=== PATIENT | male | born 1940 | race Caucasian/White ===

== ENCOUNTER 2021-09-05 08:05 | Outpatient (CLI) | payer OTHER | END 2021-09-05 08:15 | disposition home or self-care (01) | LOC: TOM 08:05 | DX: Q61.02 Congenital multiple renal cysts (principal); C61 Malignant neoplasm of prostate; Z12.11 Encounter for screening for malignant neoplasm of colon; K57.90 Diverticulosis of intestine, part unspecified, without perforation or abscess without bleeding; I70.8 Atherosclerosis of other arteries ==